=== PATIENT | female | born 1945 | race Caucasian/White ===

== ENCOUNTER 2018-05-05 16:01 | Emergency (ER) | payer OTHER ==
[~2018-05-05] VITALS: Ht 152.4 cm; Wt 88.0 kg
[2018-05-05] MEDS ORDERED: NORCO 5/3251 TABLET PO (19:07)
[2018-05-05 19:27] VITALS: BP 123/60
== END 2018-05-05 19:28 | disposition home or self-care (01) ==
LOC: EME 16:01
DX: S83.92XA Sprain of unspecified site of left knee, initial encounter (principal); Y93.H9 Activity, other involving exterior property and land maintenance, building and construction; Y92.007 Garden or yard of unspecified non-institutional (private) residence as the place of occurrence of the external cause; K21.9 Gastro-esophageal reflux disease without esophagitis; F32.9 Major depressive disorder, single episode, unspecified; Z88.5 Allergy status to narcotic agent
CPT/HCPCS: 73564; 93971; 99281; 99284